=== PATIENT | female | born 1995 | race Caucasian/White ===

== ENCOUNTER 2019-08-02 23:44 | Emergency (ER) | payer OTHER ==
[~2019-08-02] VITALS: Ht 170.2 cm; Wt 130.6 kg
[2019-08-02 23:58] VITALS: BP 134/81; Ht 170.2 cm; Wt 130.6 kg
== END 2019-08-03 01:00 | disposition home or self-care (01) ==
LOC: ED 23:44
DX: K08.89 Other specified disorders of teeth and supporting structures (principal); Z88.5 Allergy status to narcotic agent

== ENCOUNTER 2019-10-30 17:45 | Emergency (ER) | payer OTHER ==
[~2019-10-30] VITALS: Ht 157.5 cm; Wt 133.4 kg
[2019-10-30 17:56] VITALS: Ht 157.5 cm; Wt 133.4 kg
[2019-10-30 20:00] VITALS: BP 134/76
== END 2019-10-30 20:00 | disposition home or self-care (01) ==
LOC: ED 17:45
DX: M62.830 Muscle spasm of back (principal); Z88.5 Allergy status to narcotic agent
CPT/HCPCS: 20552; J2001